=== PATIENT | female | born 1940 | race Native Hawaiian/Other Pacific Islander ===

== ENCOUNTER 2018-03-14 17:45 | Emergency (ER) | payer MEDICARE ==
[2018-03-14 17:51] VITALS: O2SAT 98
[2018-03-14] MEDS ORDERED: Sodium Chloride 0.9% 1,000 ML IV ONE ×2 (18:12→18:20)
--- NOTE | 2018-03-14 18:15 | C.PDOC ---
History Of Present Illness <Kiana Sauer - Last Filed: 03/14/18 19:03> <Volodymyr Dalton - Last Filed: 03/14/18 20:30> 77 yo female w/PMHx of HTN, NIDDM, arthritis sent to ED by her PMD for further evaluation of abnormal chest xray r/o Tb. As per pt, 3 weeks ago went to [place] on vacation when developed SOB on exertion only. Pt reports, "return home and went to see my doctor who treated me for SOB, possibly pneumonia", had CXR done. Pt admits, completed course of Levaquin, yesterday was last dose with some improvement in SOB. Today, pt went for the follow up, when gave abnoraml results of CXR ( see below a copy of results) CXR findings from 03/05/18: 1. CHF with left pulmonary edema and/or infiltrate 2. Suspicion cavitary lesion. 3.Cardiomegaly. 4. Mod DJD arthritis, spondylosis of thoracic spine. As per patient, " my was diagnosed with Tuberculosis in 2011 and was treated then". Pt admits, all family who was exposed had follow up with normal results. Otherwise, pt denies fever, chills, malaise, night sweats, denies headache, dizziness, CP, dyspnea, palpitation, wheezing,m denies cough, hemoptysis, abd. pain, N/V/D, back pain, UTI sx. Ambulate to Ed for evaluation, not in any apparent distress. (Kiana Sauer) History Per: Patient, Family Onset/Duration Of Symptoms: Gradual <Kiana Sauer - Last Filed: 03/14/18 19:03> <Volodymyr Dalton - Last Filed: 03/14/18 20:30> Time Seen by Provider: 03/14/18 18:05 Chief Complaint (Nursing): Medical Clearance Past Medical History Reviewed: Historical Data, Nursing Documentation, Vital Signs - Medical History PMH: CHF, Diabetes, HTN Denies: CAD, Cardia Arrhythmia, Cardiac Aneurysm Surgical History: Denies: CABG Family History: States: No Known Family Hx - Social History Hx Tobacco Use: No Hx Alcohol Use: No Hx Substance Use: No - Immunization History Hx Tetanus Toxoid Vaccination: No Hx Influenza Vaccination: No Hx Pneumococcal Vaccination: No <Kiana Sauer - Last Filed: 03/14/18 19:03> Vital Signs: Last Vital Signs Temp 98.1 F 03/14/18 17:49 Pulse 69 03/14/18 20:12 Resp 22 03/14/18 20:12 BP 137/48 L 03/14/18 20:12 Pulse Ox 98 03/14/18 20:12 Review Of Systems Except As Marked, All Systems Reviewed And Found Negative. Constitutional: Negative for: Fever, Chills Eyes: Negative for: Vision Change ENT: Negative for: Throat Pain Cardiovascular: Negative for: Chest Pain, Palpitations, Orthopnea, Edema, Light Headedness Respiratory: Positive for: SOB with Excertion. Negative for: Cough, Wheezing Gastrointestinal: Negative for: Nausea, Vomiting, Abdominal Pain, Diarrhea Genitourinary: Negative for: Dysuria Musculoskeletal: Negative for: Neck Pain, Back Pain Skin: Negative for: Rash Neurological: Negative for: Weakness, Numbness, Headache, Dizziness <Kiana Sauer - Last Filed: 03/14/18 19:03> Physical Exam - Physical Exam Appears: Well, Non-toxic, No Acute Distress Skin: Normal Color, Warm, Dry, No Rash Head: Normacephalic Eye(s): bilateral: PERRL Nose: No Flaring, No Discharge, No Tenderness Oral Mucosa: Moist Throat: No Erythema, No Drooling Neck: Normal ROM, Trachea Midline, Supple Cardiovascular: Rhythm Regular, No Murmur, No JVD Respiratory: No Decreased Breath Sounds, No Accessory Muscle Use, No Rales, No Rhonchi, No Stridor, No Wheezing Gastrointestinal/Abdominal: Soft, No Tenderness, No Distention, No Guarding, No Rebound Back: No CVA Tenderness Extremity: Normal ROM, No Deformity, No Swelling Neurological/Psych: Oriented x3, Normal Speech <Kiana Sauer - Last Filed: 03/14/18 19:03> ED Course And Treatment - Laboratory Results Result Diagrams: 03/14/18 18:28 03/14/18 18:28 Lab Interpretation: Normal O2 Sat by Pulse Oximetry: 98 Pulse Ox Interpretation: Normal <Kiana Sauer - Last Filed: 03/14/18 19:03> - Laboratory Results Result Diagrams: 03/14/18 18:28 03/14/18 18:28 Lab Interpretation: Normal (ua neg. trop neg.) ECG: Interpreted By Me ECG Rhythm: Sinus Rhythm ECG Interpretation: Normal - Physician Consult Information Outcome Of Conversation: 2030: d/w Dr. Michel- covering pt's for eyal Naranjo to admit <Volodymyr Dalton - Last Filed: 03/14/18 20:30> Medical Decision Making <Kiana Sauer - Last Filed: 03/14/18 19:03> <Volodymyr Dalton - Last Filed: 03/14/18 20:30> Medical Decision Making: interstitial lung dz lower susp of TB, pendint TB studies will remain resp isolation until ruled out. (Volodymyr Dalton) Disposition - Disposition Disposition Time: 19:03 <Kiana Sauer - Last Filed: 03/14/18 19:03> Doctor Will See Patient In The: Hospital Counseled Patient/Family Regarding: Studies Performed, Diagnosis <Volodymyr Dalton - Last Filed: 03/14/18 20:30> - Disposition Disposition: HOSPITALIZED Condition: GOOD Forms: [employer] (Slovak) - Clinical Impression Clinical Impression: Dyspnea, Interstitial lung disease Physician Patient Turnover Patient Signed Over To: Volodymyr Dalton Handoff Comments: CT chest w/ and w/o contrast, re-eval, dispo <Kiana Sauer - Last Filed: 03/14/18 19:03>
[2018-03-14 18:33] LABS: BASO % 0.3 % (0.0-2.0); EOS # 0.2 K/uL (0.0-0.7); EOS % 1.9 % (0.0-4.0); HEMOGLOBIN 11.6 g/dL (11.0-16.0); LYMPH # 2.6 K/uL (1.0-4.3); LYMPH % 27.5 % (20.0-40.0); MEAN CORPUSCULAR HEMOGLOBIN 30.9 pg (27.0-31.0); MEAN CORPUSCULAR HGB CONC 33.9 g/dL (33.0-37.0); MEAN PLATELET VOLUME 6.6 fL (7.2-11.7); MONO # 0.5 K/uL (0.0-0.8); MONO % 5.7 % (0.0-10.0); NEUT # 6.1 K/uL (1.8-7.0); NEUT % 64.6 % (50.0-75.0); NRBC % 0.1 % (0.0-2.0); RBC 3.77 Mil/uL (3.80-5.20); RED CELL DISTRIBUTION WIDTH 13.6 % (11.5-14.5); WHITE BLOOD COUNT 9.5 K/uL (4.8-10.8)
[2018-03-14 18:40] LABS: INR 1.1; PROTHROMBIN TIME 12.1 SECONDS (9.7-12.2)
[2018-03-14 18:44] LABS: SQUAMOUS EPITHIAL < 1 /hpf (0-5); URINE BILIRUBIN NEGATIVE (NEGATIVE); URINE BLOOD NEGATIVE (NEGATIVE); URINE CLARITY Clear (Clear); URINE COLOR Colorless (YELLOW); URINE GLUCOSE (UA) NORMAL (Normal); URINE LEUKOCYTE ESTERASE NEG Leu/uL (Negative); URINE PROTEIN NEGATIVE (NEGATIVE); URINE UROBILINOGEN NORMAL mg/dL (0.2-1.0)
[2018-03-14] MEDS ORDERED: Benzoin Compound Tincture (60 ml) ONE (18:47)
[2018-03-14 18:49] LABS: ALBUMIN 4.4 g/dL (3.5-5.0); ALT/SGPT 20 U/L (9-52); AST/SGOT 31 U/L (14-36); BLOOD UREA NITROGEN 21 mg/dL (7-17); CALCIUM 9.9 mg/dl (8.6-10.4); GFR AFRICAN-AMERICAN > 60; GFR NON-AFRICAN AMERICAN 53
--- NOTE | 2018-03-14 18:52 | CT ---
Date of service: 03/14/2018 PROCEDURE: CT Chest without contrast HISTORY: SOB COMPARISON: None available. TECHNIQUE: Contiguous axial images were obtained through the chest without intravenous contrast enhancement. Sagittal and coronal reconstructions were performed. Radiation dose (DLP): 222.72 mGy-cm. This CT exam was performed using one or more of the following dose reduction techniques: Automated exposure control, adjustment of the mA and/or kV according to patient size, and/or use of iterative reconstruction technique. FINDINGS: LUNGS: No consolidation. Chronic interstitial fibrosis associated with ground-glass opacity and bronchiectasis in the right lower lobe and right middle lobe with patchy areas of interstitial fibrosis in both upper lobes and left lower lobe. There are patchy areas of subpleural fibrosis. There is no pulmonary mass. MEDIASTINUM: Unremarkable thoracic aorta. No aneurysm. Normal sized heart. Main pulmonary artery unremarkable. No vascular congestion. No lymphadenopathy. PLEURA: No pleural fluid. No pneumothorax. BONES: No fracture. No destructive lesion. UPPER ABDOMEN: Grossly unremarkable. OTHER FINDINGS: None. IMPRESSION: Multifocal chronic interstitial fibrosis with associated ground-glass opacity and bronchiectasis in the right middle and lower lobes. Scattered foci of subpleural fibrosis. No jay jay consolidation. .
[2018-03-14 18:57] LABS: B-TYPE NATRIURETIC PEPTIDE 180 pg/mL (0-900)
[2018-03-14] MEDS ORDERED: Sodium Chloride 0.9% 1,000 ML ONE (20:48)
[2018-03-14 21:13] VITALS: BP 137/50; PULSE 74; RESP 18; TEMP 98
== END 2018-03-14 21:14 | disposition home or self-care (01) ==
LOC: C.ER 17:45 → C.9E 20:30 → UNDOADMIN 20:30 → C.ER 21:13
DX: J84.9 Interstitial pulmonary disease, unspecified (principal); R06.00 Dyspnea, unspecified; I11.0 Hypertensive heart disease with heart failure; I50.9 Heart failure, unspecified; E11.9 Type 2 diabetes mellitus without complications
CPT/HCPCS: 71250; 80053; 81001; 83880; 84484; 85025; 85610; 85730; 87040; 87070; 87086; 87116; 87181; 87206; 93005; 99285; J7030